=== PATIENT | male | born 1990 | race African-American/Black ===

== ENCOUNTER 2024-02-16 09:54 | Emergency (ER) | payer MEDICAID ==
[~2024-02-16] VITALS: Ht 175.3 cm; Wt 68.0 kg
[2024-02-16 09:57] VITALS: TEMP 97.8; O2SAT 99
[2024-02-16 11:06] LABS: BASOPHILS % 1.4 % (0.0-2.0); EOSINOPHILS % 0.8 % (0.0-5.0); HEMATOCRIT. 40.7 % (42.0-52.0); HEMOGLOBIN. 13.8 g/dL (14.0-18.0); LYMPHOCYTES % 24.7 % (20.0-50.0); MEAN CORPUSCULAR HEMOGLOBIN 32.3 pg (28.0-32.0); MEAN CORPUSCULAR HGB CONC 33.8 g/dL (31.0-37.0); MEAN CORPUSCULAR VOLUME 95.6 fL (80.0-94.0); MEAN PLATELET VOLUME 6.7 fl (7.4-10.4); MONOCYTES % 6.2 % (2.0-8.0); NEUTROPHILS % 66.9 % (40.0-76.0); PLATELET 407 x1000/uL (130-400); RED BLOOD CELL COUNT 4.25 mill/uL (4.7-6.1); RED CELL DISTRIBUTION WIDTH 12.5 % (11.6-14.6); WHITE BLOOD COUNT 9.4 x1000/uL (4.5-11.0)
[2024-02-16 11:08] LABS: CHLORIDE 101 mEq/L (98-107); POTASSIUM 3.9 mEq/L (3.5-5.1); SODIUM 135 mEq/L (136-145)
[2024-02-16 11:09] LABS: CALCIUM 9.3 mg/dL (8.7-10.4); CARBON DIOXIDE 26 mEq/L (21-32)
[2024-02-16 11:14] LABS: CREATININE 0.9 mg/dL (0.6-1.3); GLUCOSE 262 mg/dL (70-105); UREA NITROGEN BLOOD 8 mg/dL (9-23)
[2024-02-16 11:32] VITALS: BP 128/82; PULSE 135; RESP 16
[2024-02-16] MEDS: SODIUM CHLORIDE 0.9% 1,000 ML IV ONE (11:32)
[2024-02-16] MEDS: IBUPROFEN 400MG TABLET PO ONE (11:32)
== END 2024-02-16 11:40 | disposition left against medical advice (07) ==
LOC: ER 09:54
DX: G89.11 Acute pain due to trauma (principal)
CPT/HCPCS: 99283; 96360; 80048; 85025; 36415; J7030